=== PATIENT | female | born 2000 | race Two or more races ===

== ENCOUNTER 2023-01-17 23:35 | Emergency (ER) | payer OTHER ==
[~2023-01-17] VITALS: Ht 154.9 cm; Wt 77.1 kg
[2023-01-18] MEDS ORDERED: IV NS 0.9% 1,000 ML BAG IV ONE
[2023-01-18] MEDS ORDERED: ONDANSETRON HCL/PF 4 MG/2 ML VIAL IVP ONE
--- NOTE | 2023-01-18 | NUR ---
URINE COLLECTED SENT TO LAB
--- NOTE | 2023-01-18 00:15 | NUR ---
LINE IN LAC#20, LABS DRAWN AND SENT TO LAB
--- NOTE | 2023-01-18 00:15 | NUR ---
BIBS C/O ABD PAIN 08/07, N/V DIARRHEA X 5 DAYS. A/OX4. ROOM AIR. CONNECTED TO MONITOR. TO BED 4.
--- NOTE | 2023-01-18 00:20 | NUR ---
PATIENT TAKEN TO CT
[2023-01-18] MEDS ORDERED: ONDANSETRON HCL/PF 4 MG/2 ML VIAL ONE (00:21)
[2023-01-18 00:26] LABS: BILIRUBIN,URINE NEGATIVE (NEGATIVE); COLOR,URINE YELLOW (YELLOW); LEUKOCYTE ESTERASE ,URINE NEGATIVE (NEGATIVE); NITRITE, URINE NEGATIVE (NEGATIVE); PROTEIN,URINE NEGATIVE (NEGATIVE); UGLUCOSE NEGATIVE (NEGATIVE); UROBILINOGEN,URINE 0.2 EU/dL (0.2)
[2023-01-18 00:27] LABS: BASOPHILS % (AUTO) 0.1 % (0.0-2.0); EOSINOPHILS % (AUTO) 6.3 % (0.0-6.0); HEMATOCRIT 40 % (33-45); HEMOGLOBIN 12.8 g/dL (11.5-14.8); LYMPHOCYTES # (AUTO) 2.2 K/uL (0.8-4.8); LYMPHOCYTES % (AUTO) 25.8 % (20.0-44.0); MEAN CORPUSCULAR HGB CONC 32 g/dl (31.0-36.0); MEAN CORPUSCULAR VOLUME 77 fL (82-100); MONOCYTES # (AUTO) 0.7 K/uL (0.1-1.30); MONOCYTES % (AUTO) 7.8 % (2.0-12.0); NEUTROPHILS # (AUTO) 5.1 K/uL (1.8-8.9); PLATELET COUNT (AUTO) 253 K/uL (150-450); RED BLOOD CELL COUNT(AUTO) 5.17 MIL/uL (4.0-5.2); WHITE BLOOD COUNT (AUTO) 8.6 K/uL (4.3-11.0)
--- NOTE | 2023-01-18 00:29 | NUR ---
PATIENT BACK FROM CT
[2023-01-18 00:31] LABS: BACTERIA,URINE Rare /HPF (None Seen); RBC,URINE 0-2 /HPF (0-2); SQUAMOUS EPITHELIAL CELL,UR Few /HPF (None Seen); WBC,URINE 0-2 /HPF (0-3)
[2023-01-18] MEDS ORDERED: DICYCLOMINE HCL INJ 20 MG/2 ML AMPUL IM ONE ×2 (00:48→01:00)
[2023-01-18 00:52] LABS: CALCIUM, SERUM 9.2 mg/dL (8.5-10.1); CREATININE 0.6 mg/dL (0.6-1.3); POTASSIUM 3.3 mmol/L (3.5-5.1)
[2023-01-18 00:58] LABS: BILIRUBIN,DIRECT 0.1 mg/dL (0.0-0.2); BILIRUBIN,TOTAL 0.5 mg/dL (0.2-1.0); TOTAL PROTEIN, SERUM 7.8 g/dL (6.4-8.2)
[2023-01-18] MEDS ORDERED: ONDA4TAB5 PO (03:07)
--- NOTE | 2023-01-18 03:11 | NUR ---
Patient discharged to home in stable condition. Written and verbal after care instructions given. Patient verbalizes understanding of instruction. RX given. IV removed. Catheter intact and site benign. Pressure and 4x4 applied to site. No bleeding noted. ambulatory with a steady gait.
[2023-01-18 03:23] VITALS: BP 111/71
== END 2023-01-18 03:26 | disposition home or self-care (01) ==
LOC: ER 23:37
DX: R19.7 Diarrhea, unspecified (principal); R10.9 Unspecified abdominal pain; R11.2 Nausea with vomiting, unspecified; Z79.899 Other long term (current) drug therapy
CPT/HCPCS: 99285; 74176; 36415; 96374; 96361; 96372; 85025; 80048; 83690; 80076; 84703; 81001; 85730; J2405; J7030; J0500